=== PATIENT | female | born 1975 | race Caucasian/White ===

== ENCOUNTER 2021-11-18 23:33 | Inpatient (IN) | payer MEDICAID ==
[2021-11-19] MEDS ORDERED: Sodium Chloride 0.9% 10 ML Syringe FLUSH PRN (00:51)
[2021-11-19] MEDS ORDERED: Sodium Chloride 0.9% 500 ML IV ONE ×2 (00:52→02:02)
[2021-11-19 01:03] LABS: ESTIMATED GFR 108 mL/min (>60)
[2021-11-19] MEDS ORDERED: 50% Dextrose in Water 50 ML Syringe IVPUSH PRN ×2 (01:31→03:21)
[2021-11-19] MEDS ORDERED: Insulin Glargine,Human Rec. Analog 100 Units/ML 3 ML Pen SUBCUT SCH (01:31)
[2021-11-19] MEDS ORDERED: Glucagon,Human Recombinant 1 MG Vial IM PRN ×2 (01:31→03:21)
[2021-11-19] MEDS ORDERED: Sodium Chloride 0.9% 1,000 ML IV SCH (03:21)
[2021-11-19] MEDS ORDERED: Albuterol 0.083% 2.5 MG/3 ML Neb Soln NEB PRN (03:21)
[2021-11-19] MEDS ORDERED: Morphine 2 MG/ML SYRINGE IVPUSH PRN (03:21)
[2021-11-19] MEDS ORDERED: Albuterol/Ipratropium 3.0-0.5 MG/3 ML Neb Soln NEB PRN (03:21)
[2021-11-19] MEDS ORDERED: Insulin Regular, Human 100 Units/ML 3 ML Vial SUBCUT ONE (03:21)
[2021-11-19] MEDS ORDERED: Docusate Sodium 100 MG Cap PO PRN (03:21)
[2021-11-19] MEDS ORDERED: Bisacodyl 5 MG Tab PO PRN (03:21)
[2021-11-19] MEDS ORDERED: Ondansetron 4 MG Tab.DIS PO PRN (03:21)
[2021-11-19] MEDS ORDERED: Acetaminophen 325 MG Tab PO PRN (03:21)
[2021-11-19] MEDS: oxyCODONE 5 MG Tab PO PRN ×2 (04:01→10:40)
[2021-11-19] MEDS ORDERED: Pantoprazole 40 MG Tab.CR PO SCH (07:30)
[2021-11-19] MEDS: Insulin Lispro 100 Unit/ML 3 ML KwikPen SUBCUT SCH ×3 (08:28→17:16)
[2021-11-19] MEDS ORDERED: Enoxaparin 30 MG/0.3 ML Syringe SUBCUT SCH (09:00)
[2021-11-19] MEDS ORDERED: amLODIPine 5 MG Tab PO SCH (09:00)
[2021-11-19] MEDS ORDERED: Pantoprazole 40 MG Vial IV SCH (09:00)
[2021-11-19] MEDS ORDERED: Enoxaparin 40 MG/0.4 ML Syringe SUBCUT SCH (09:00)
[2021-11-19] MEDS ORDERED: Losartan 50 MG Tab PO SCH (09:00)
[2021-11-19] MEDS ORDERED: Nicotine 14 MG/24 Hr Patch TRDERM SCH (09:00)
[2021-11-19] MEDS ORDERED: Escitalopram 10 MG Tab PO SCH (09:00)
[2021-11-19 16:59] LABS: HEMOGLOBIN A1C 13.6 % (4.5-6.2)
[2021-11-19] MEDS ORDERED: atorvaSTATin 20 MG Tab PO SCH (21:00)
[2021-11-21 02:11] LABS: ANA DIRECT Negative (Negative)
== END 2021-11-19 18:27 | DRG 639 ==
LOC: JP.ED 23:33 → JP.ICU 11-19 02:50 → UNDOADMIN 11-19 02:50
PROVIDERS: ADMIT Nurse Practitioner; ATTEND Nurse Practitioner
DX: E11.65 Type 2 diabetes mellitus with hyperglycemia (principal); E78.5 Hyperlipidemia, unspecified; I10 Essential (primary) hypertension; G47.00 Insomnia, unspecified; Z20.822 Contact with and (suspected) exposure to COVID-19; F32.A Depression, unspecified; E66.9 Obesity, unspecified; F17.210 Nicotine dependence, cigarettes, uncomplicated; E11.42 Type 2 diabetes mellitus with diabetic polyneuropathy; M62.81 Muscle weakness (generalized); Z68.24 Body mass index [BMI] 24.0-24.9, adult; Z91.14 Patient's other noncompliance with medication regimen; Z88.8 Allergy status to other drugs, medicaments and biological substances; Z79.899 Other long term (current) drug therapy; Z79.4 Long term (current) use of insulin; Z87.81 Personal history of (healed) traumatic fracture; S72.454 Nondisplaced supracondylar fracture without intracondylar extension of lower end of right femur; S82.831S Other fracture of upper and lower end of right fibula, sequela; W18.30XS Fall on same level, unspecified, sequela
CPT/HCPCS: 36415; 72100; 72148; 72148-26; 73552-26-LT; 73552-RT; 80048; 80053; 80305-QW; 81001; 81025; 82009; 82550; 82607; 82746; 82803; 82947; 83036; 83735; 84443; 85025; 86038; 86140; 86431; 86618; 87086; 97110-GP; 97163-GP; 97530-GP; 99285; A9270-GY; J1650; J1815; J1815-GY; J3370; J3490; J7030; J7040; J7050; U0002